=== PATIENT | female | born 1965 | race Asian ===

== ENCOUNTER 2023-04-04 12:32 | Emergency (ER) | payer OTHER ==
[~2023-04-04] VITALS: Ht 175.3 cm; Wt 139.3 kg
[2023-04-04 12:35] VITALS: TEMP 98.5
[2023-04-04 13:03] LABS: PLATELET COUNT 236 K/uL (152-353)
[2023-04-04 13:12] LABS: POTASSIUM 4.4 mmol/L (3.6-5.2)
[2023-04-04 13:21] LABS: PARTIAL THROMBOPLASTIN TIME 27.4 SECONDS (23.9-36.7)
[2023-04-04 14:40] VITALS: BP 173/98
== END 2023-04-04 14:40 | disposition home or self-care (01) ==
LOC: ED 12:32
PROVIDERS: Family Medicine
DX: K21.9 Gastro-esophageal reflux disease without esophagitis (principal); R07.9 Chest pain, unspecified; D50.9 Iron deficiency anemia, unspecified
CPT/HCPCS: 36415; 80053; 82550; 84484; 85027; 85610; 85730; 86140; 93005; 96374; 99284; J2405